=== PATIENT | female | born 1985 | race Two or more races ===

== ENCOUNTER 2020-07-29 10:13 | Day surgery (SDC) | payer OTHER ==
[2020-07-27 13:46] LABS: BASOPHILS % (AUTO) 1 % (0-1); EOSINOPHILS % (AUTO) 5 % (1-7); LYMPHOCYTES % (AUTO) 26 % (22-44); MEAN CORPUSCULAR HEMOGLOBIN 20.5 pg (27.0-34.8); MEAN CORPUSCULAR HGB CONC 31.5 g/dL (32.4-35.8); MEAN PLATELET VOLUME 7.3 fL (7.4-10.4); MONOCYTES % (AUTO) 9 % (2-9); NEUTROPHILS % (AUTO) 60 % (42-75); PLATELET COUNT 479 x10^3/uL (130-400); RED CELL DISTRIBUTION WIDTH 20.9 % (9.6-15.2)
[2020-07-27 13:47] LABS: MD NO
[~2020-07-29] VITALS: Ht 162.6 cm; Wt 75.1 kg
[~2020-07-29 10:13] MED LIST: CHOL10003 PO; DOCO200C3 PO; FENTANYL PF 250 MCG/5ML ONE; MIDAZOLAM 1 MG/ML, 2ML ONE
[2020-07-29 11:00] VITALS: BP 119/82
[2020-07-29] MEDS ORDERED: LIDOCAINE-MPF 1%, 2ML INFIL ONE (11:00)
[2020-07-29] MEDS ORDERED: CHLORHEXIDINE 15 ML UDC PO ONE (11:00)
[2020-07-29] MEDS ORDERED: LACTATED RINGERS 1,000 ML IV SCH (11:00)
[2020-07-29] MEDS ORDERED: METHYLERGONOVINE 0.2 MG/ML IM ONE (12:10)
[2020-07-29] MEDS ORDERED: SILVER NITRATE STICK TP ONE (12:12)
[2020-07-29] MEDS ORDERED: MISOPROSTOL 200 MCG TABLET ONE (12:12)
[2020-07-29] MEDS ORDERED: OXYTOCIN 10 UNITS/ML, 1ML ONE (12:12)
[2020-07-29] MEDS ORDERED: DOXYCYCLINE 100 MG VIAL ONE (12:13)
[2020-07-29] MEDS ORDERED: METOCLOPRAMIDE 5 MG/ML, 2ML ONE (12:26)
[2020-07-29] MEDS ORDERED: ONDANSETRON 2MG/ML, 2ML ONE (12:26)
[2020-07-29] MEDS ORDERED: DEXAMETHASONE 4 MG/ML, 1ML ONE (12:26)
[2020-07-29] MEDS ORDERED: PROPOFOL 10 MG/ML, 20ML ONE (12:26)
[2020-07-29] MEDS ORDERED: KETOROLAC 30 MG/1 ML ONE (12:26)
[2020-07-29] MEDS ORDERED: MEPERIDINE/PF 25MG/0.5ML IVPush PRN (12:30)
[2020-07-29] MEDS ORDERED: METHOCARBAMOL 1,000 MG in DEXTROSE 5% 100 ML IV PRN (12:30)
[2020-07-29] MEDS ORDERED: OXYcodone 5 MG/5 ML ORAL.SOL UDC PO PRN (12:30)
[2020-07-29] MEDS ORDERED: FENTANYL PF 100 MCG/2ML IV PRN (12:30)
[2020-07-29] MEDS ORDERED: EPHEDRINE 50 MG/ML, 1ML IVPush PRN (12:30)
[2020-07-29] MEDS ORDERED: LABETALOL 5MG/ML, 20ML IV PRN (12:30)
[2020-07-29] MEDS ORDERED: ONDANSETRON 2MG/ML, 2ML IVPush PRN (12:30)
[2020-07-29] MEDS ORDERED: HALOPERIDOL 5 MG/ML IV PRN (12:30)
[2020-07-29] MEDS ORDERED: hydrALAzine 20 MG/ML, 1ML IV PRN (12:30)
[2020-07-29] MEDS ORDERED: PROMETHAZINE 25 MG/ML, 1ML IVPush PRN (12:30)
[2020-07-29] MEDS ORDERED: HYDROmorphone 1 MG/ML, 1ML INJ IVPush PRN (12:30)
[2020-07-29] MEDS ORDERED: LORazepam 2 MG/ML, 1ML IVPush PRN (12:30)
[2020-07-29] MEDS ORDERED: DOXYCYCLINE 100 MG in DEXTROSE 5% 250 ML IV ONE (12:30)
[2020-07-29] MEDS ORDERED: ACETAMINOPHEN 325 MG TABLET PO PRN (12:30)
[2020-07-29] MEDS ORDERED: BUPIVACAINE/PF 0.25% ONE (12:33)
[2020-07-29] MEDS ORDERED: BUPIVACAINE/PF-EPI 0.25% 1:200K INFIL ONE (12:36)
[2020-07-29] MEDS ORDERED: PROMETHAZINE 25 MG/ML, 1ML ONE (13:10)
== END 2020-07-29 16:10 | disposition home or self-care (01) ==
LOC: OUT 10:13
PROVIDERS: ATTEND Obstetrics & Gynecology
DX: O02.1 Missed abortion (principal); Z20.822 Contact with and (suspected) exposure to COVID-19; Z79.899 Other long term (current) drug therapy
CPT/HCPCS: 36415; 59820; 85025; 86850; 86900; 88305; J1100; J1885; J2210; J2250; J2405; J2550; J2704; J2765; J3010; J7060; J7120; U0003; U0005; J2590